=== PATIENT | female | born 1940 | race Caucasian/White ===

== ENCOUNTER 2019-10-17 14:39 | Emergency (ER) | payer MEDICARE, BC ==
[~2019-10-17] VITALS: Ht 160 cm; Wt 68.0 kg
--- NOTE | 2019-10-17 16:15 | NUR ---
Patient discharged to home in stable condition. Written and verbal after care instructions given to patient. Patient verbalized understanding and compliance of instructions. Emphasis and stressed follow up with PMD and ortho doctor were given to patient or return to ER for worsening s/s.
== END 2019-10-17 16:29 | disposition home or self-care (01) ==
LOC: ER 14:50
PROC: 2W3CX1Z Immobilization of Right Lower Arm using Splint (ICD-10-PCS; principal; 2019-10-17)
DX: S52.501A Unspecified fracture of the lower end of right radius, initial encounter for closed fracture (principal); W17.89XA Other fall from one level to another, initial encounter; Y93.89 Activity, other specified; Y92.89 Other specified places as the place of occurrence of the external cause
CPT/HCPCS: 73090; A4663